=== PATIENT | male | born 1960 | race Caucasian/White ===

== ENCOUNTER → 2018-02-25 | Outpatient (CLI) | payer BC ==
[2018-02-25 09:00] LABS: ALT 40 U/L (21-72); AST 30 U/L (17-59); Albumin 4.5 g/dL (3.5-5.0); Alkaline Phosphatase 63 U/L (38-126); Anion Gap 13 mmol/L; Blood Urea Nitrogen 23 mg/dL (9-20); Calcium 9.6 mg/dL (8.4-10.2); Carbon Dioxide 25 mmol/L (22-30); Chloride 103 mmol/L (98-107); Cholesterol 158 mg/dL (<200); Glucose 94 mg/dL (74-99); HDL Cholesterol 53 mg/dL (40-60); LDL Cholesterol,Calculated 89 mg/dL (0-99); Potassium 4.8 mmol/L (3.5-5.1); Sodium 141 mmol/L (137-145); Total Bilirubin 1.1 mg/dL (0.2-1.3); Total Protein 6.9 g/dL (6.3-8.2); Triglycerides 82 mg/dL (<150)
== END | disposition home or self-care (01) ==
LOC: LABWHC1 08:07
PROVIDERS: ATTEND Internal Medicine Cardiovascular Disease
DX: I10 Essential (primary) hypertension (principal); I25.10 Atherosclerotic heart disease of native coronary artery without angina pectoris
CPT/HCPCS: 36415; 80053; 80061

== ENCOUNTER → 2019-08-03 | Outpatient (CLI) | payer BC ==
[2019-08-03 20:33] LABS: Chol/HDL Ratio 3.49; LDL Cholesterol,Calculated 112.8 mg/dL (0.0-131.0); VLDL Calculation 14.2 mg/dL (5.00-40.00)
== END | disposition home or self-care (01) ==
LOC: LABWHC1 08:41
PROVIDERS: ATTEND Internal Medicine Cardiovascular Disease
DX: I25.10 Atherosclerotic heart disease of native coronary artery without angina pectoris (principal); E78.5 Hyperlipidemia, unspecified
CPT/HCPCS: 36415; 80061; 84450; 84460

== ENCOUNTER 2019-08-20 15:01 | Emergency (ER) | payer BC ==
[2019-08-20] MEDS ORDERED: HYDROcodone/APAP 5-325MG 1 EACH TAB PO STA (15:32)
--- NOTE | 2019-08-20 16:16 | XR ---
EXAMINATION TYPE: XR calcaneus 2V RT DATE OF EXAM: 08/20/2019 COMPARISON: None HISTORY: Trauma, pain from fall TECHNIQUE: 2 view right calcaneus FINDINGS: No acute fractures or dislocations are evident. Very minimal plantar calcaneal heel spur is present. Boehler's angle is preserved. No acute fractures are evident. IMPRESSION: 1. Normal two-view calcaneus
--- NOTE | 2019-08-20 16:17 | XR ---
EXAMINATION TYPE: XR foot complete RT DATE OF EXAM: 08/20/2019 COMPARISON: None HISTORY: Fall, pain TECHNIQUE: Three-view right foot FINDINGS: No acute fractures are evident. Valgus deformity of the distal fifth digit is present. Some narrowing of the first metatarsophalangeal joint space is present. Mild narrowing of the proximal in terphalangeal joint spaces of the second through fifth digits are present. No acute fractures are dilip ntified. Very minimal plantar calcaneal heel spur is present. IMPRESSION: 1. No acute osseous abnormality. 2. Follow-up exams can be performed 7-10 days from acute trauma for continued pain.
--- NOTE | 2019-08-20 16:18 | XR ---
EXAMINATION TYPE: XR wrist complete LT DATE OF EXAM: 08/20/2019 COMPARISON: None HISTORY: Fall, pain TECHNIQUE: 4 view left wrist FINDINGS: There is a transverse fracture through the distal radius diaphysis. Small spur is along the radial aspect of the distal radius. No additional fractures are evident. Joint spaces are preserved. There is some degenerative joint changes at the first metacarpal metacarpal junction. IMPRESSION: 1. Transverse fracture distal metaphyseal radius. Some mild dorsal angulation may be present. 2. Soft tissue swelling over the fracture site.
--- NOTE | 2019-08-20 16:20 | XR ---
EXAMINATION TYPE: XR ribs LT w pa chest xray DATE OF EXAM: 08/20/2019 COMPARISON: Chest x-ray 09/21/2012 HISTORY: Fall, pain, trauma TECHNIQUE: Left ribs are examined in 2 projections. FINDINGS: No acute left rib fractures are evident. The soft tissues are normal. Minimal atelectasis m ay be at the cardiac apex. No pneumothorax is evident. IMPRESSION: 1. Mild atelectasis left base. 2. No displaced rib fractures identified. 3. Follow-up exams can be performed 7-10 days from acute trauma for continued pain.
--- NOTE | 2019-08-20 16:45 | ED ---
Fall HPI - General Chief Complaint: Fall Stated Complaint: Fall/arm injury Time Seen by Provider: 08/20/19 15:10 Source: patient Mode of arrival: ambulatory - History of Present Illness Initial Comments: Patient is a 59-year-old male with past history of stent placement presents emergency room and after he sustained a fall. He fell off of a ladder from a height of approximately 6 foot. States he landed on his left side. He landed on an outstretched arm as well as his left ribs. Reports to right heel pain as well. He landed on concrete. There was no blunt head trauma or loss of consciousness. The patient is on Plavix. There was no loss of consciousness. Patient is right-hand dominant. Complaining of pain with movement of the left wrist. Denies any numbness or tingling in his hands. No color changes. No neck or back pain. Patient has been ambulatory without difficulty. Denies any calf pain or swelling. No ankle pain or knee pain. No shoulder pain. He also reports to left-sided chest wall pain. No shortness of breath. No anterior chest pain. There are no alleviating, precipitating or modifying factors - Related Data Previous Rx's Medication Instructions Recorded Hydrocodone/Acetaminophen [[place] 1 tab PO Q6HR PRN #12 tab 08/20/19 5-325] Allergies Allergy/AdvReac Type Severity Reaction Status Date / Time No Known Allergies Allergy Verified 08/20/19 15:10 Review of Systems ROS Statement: Those systems with pertinent positive or pertinent negative responses have been documented in the HPI. ROS Other: All systems not noted in ROS Statement are negative. Past Medical History Past Medical History: Myocardial Infarction ([place]) History of Any Multi-Drug Resistant Organisms: None Reported Past Surgical History: Heart Catheterization With Stent Smoking Status: Never smoker Past Alcohol Use History: Occasional Past Drug Use History: None Reported General Exam Limitations: no limitations General appearance: alert, in no apparent distress Head exam: Present: atraumatic, normocephalic Eye exam: Present: PERRL, EOMI ENT exam: Present: normal exam Neck exam: Present: normal inspection. Absent: tenderness Respiratory exam: Present: normal lung sounds bilaterally, chest wall tenderness. Absent: respiratory distress, wheezes, rales, rhonchi, accessory muscle use Cardiovascular Exam: Present: normal rhythm, bradycardia GI/Abdominal exam: Present: soft. Absent: distended, tenderness, guarding, rebound, rigid Extremities exam: Present: tenderness (distal left wrist with obvious swelling. Decreased ROM due to pain. Patient is able to partially extend wrist and open/close hand. Intact sensation in the median, radial and ulnar distributions. No pain in the elbow or shoulder), other (right heel tenderness to palpation) Back exam: Present: normal inspection Neurological exam: Present: alert, oriented X3 Psychiatric exam: Present: normal affect, normal mood Skin exam: Present: warm, dry, intact Course Vital Signs 08/20/19 08/20/19 15:07 17:43 Temperature 97.6 F 98 F Pulse Rate 52 L 78 Respiratory 18 16 Rate Blood Pressure 121/64 138/70 O2 Sat by Pulse 100 98 Oximetry Procedures - FAST Exam Fluid in Morison's pouch: No Fluid in Splenorenal Junction: No Fluid around bladder, Transverse view: No Fluid around bladder, Sagittal view: No Limited Echocardiogram view: parasternal Fluid in Pericardial Sac: No Gross Wall Motion Abnormality: No Study normal for this patient: Yes Images saved for further review: Yes - Orthopedic Splinting/Casting Injury #1 Side: left Upper Extremity Immobilizer: sugar tong splint, synthetic pre-padded splint Medical Decision Making - Medical Decision Making The patient is placed in room 15. He is given a [place] for pain control. I did recommend x-rays of the patient's left ribs and chest. Also recommended a left wrist, right foot and right calcaneus x-ray. Imaging is reviewed. Left-sided rib x-ray demonstrated mild atelectasis at the left lung base. No displaced rib fractures. Left wrist x-ray demonstrates transverse fracture to the distal metaphyseal radius. Some mild dorsal angulation. Soft tissue swelling over the fracture site. Right foot and right calcaneus x-ray demonstrates no acute osseous have immobility. The patient was placed in a sugar tong splint. I also performed a FAST exam which was negative. He is to follow-up with the orthopedic associates. Take Motrin as needed for pain control. Return to the emergency department for any new or worsening symptoms Disposition Clinical Impression: Distal radius fracture, left, Fall, Left-sided chest wall pain, Right foot pain Disposition: HOME SELF-CARE Condition: Stable Instructions (If sedation given, give patient instructions): Wrist Fracture in Adults (ED) Additional Instructions: Please follow-up with the orthopedic doctor within 2-4 days. Return to the emergency room for any worsening symptoms Prescriptions: Hydrocodone/Acetaminophen [[place] 5-325] 1 tab PO Q6HR PRN #12 tab PRN Reason: Pain Is patient prescribed a controlled substance at d/c from ED?: Yes When asked, does pt state using other controlled substances?: No If prescribed controlled substance>3 days was MAPS reviewed?: Prescribed <3 Days If opioid is for acute pain is fill amount 7 days or less?: Yes If Rx opioid, was Start Talking consent form obtained?: Yes Referrals: Dayton Wheeler III, MD [Primary Care Provider] - 1-2 days Vinayak Arriaga DO [Doctor of Osteopathic Medicine] - 1-2 days Time of Disposition: 17:28
[2019-08-20] MEDS ORDERED: MORPHINE SULFATE 4 MG/ML SYRINGE IM STA (17:28)
[2019-08-20 17:44] VITALS: BP 138/70; PULSE 78; RESP 16; TEMP 98
== END 2019-08-20 17:43 | disposition home or self-care (01) ==
LOC: EC 15:01
DX: S52.592A Other fractures of lower end of left radius, initial encounter for closed fracture (principal); R07.89 Other chest pain; M79.671 Pain in right foot; J98.11 Atelectasis; R00.1 Bradycardia, unspecified; I25.2 Old myocardial infarction; Z79.02 Long term (current) use of antithrombotics/antiplatelets; Z95.5 Presence of coronary angioplasty implant and graft; W11.XXXA Fall on and from ladder, initial encounter
CPT/HCPCS: 99283; 29125; 96372; 71101; 73110; 73630; 73650; J2270

== ENCOUNTER → 2020-05-03 | Outpatient (CLI) | payer BC ==
[2020-05-03 17:05] LABS: Albumin 4.2 g/dL (3.80-4.90); Albumin/Globulin Ratio 2.33 (1.60-3.17); Bilirubin, Conjugated 0.2 mg/dL (0.20-0.40); Bilirubin,Unconjugated 0.4 mg/dL; Chol/HDL Ratio 2.85; Globulin 1.8 g/dL (1.6-3.3); Total Bilirubin 0.6 mg/dL (0.3-1.2)
== END | disposition home or self-care (01) ==
LOC: LABWHC1 07:42
PROVIDERS: ATTEND Internal Medicine Cardiovascular Disease
DX: E78.5 Hyperlipidemia, unspecified (principal); I25.10 Atherosclerotic heart disease of native coronary artery without angina pectoris
CPT/HCPCS: 36415; 80061; 80076

== ENCOUNTER → 2023-09-15 | Outpatient (CLI) | payer BC ==
[2023-09-15 15:30] LABS: ALT 43 U/L (10-49); AST 22 U/L (14-35); Chol/HDL Ratio 3.57 Ratio; LDL Cholesterol,Calculated 90.4 mg/dL (0.0-131.0)
== END | disposition home or self-care (01) ==
LOC: LABWHC1 09:06
PROVIDERS: ATTEND Internal Medicine Interventional Cardiology
DX: E78.00 Pure hypercholesterolemia, unspecified (principal)
CPT/HCPCS: 36415; 80061; 84450; 84460

== ENCOUNTER → 2024-05-19 | Outpatient (CLI) | payer BC | END | disposition home or self-care (01) | LOC: LABWHC1 08:19 | PROVIDERS: ATTEND Internal Medicine Interventional Cardiology | DX: E78.2 Mixed hyperlipidemia (principal) | CPT/HCPCS: 36415; 80061; 84450; 84460 ==

== ENCOUNTER 2025-01-30 09:27 | Day surgery (SDC) | payer BC ==
[~2025-01-30 09:27] MED LIST: LIDOCAINE 1% (10MG/ML) FOR IV START INTRADERMA PRN; ONDANSETRON 4 MG/2 ML VIAL IVP PRN
[2025-01-30] MEDS: IV FLUID CONTINUATION 1,000 ML IV ONE (10:00)
[2025-01-30 10:10] VITALS: RESP 16; TEMP 97.4
[2025-01-30] MEDS: LACTATED RINGERS 1,000 ML IV SCH (10:10)
[2025-01-30] MEDS ORDERED: PROPOFOL 10 MG/ML 20 ML VIAL IV ONE (10:44)
--- NOTE | 2025-01-30 10:48 | P.GSHP ---
History of Present Illness H&P Date: 01/30/25 Chief Complaint: Colon cancer screening 64-year-old male here for colonoscopy. Last colonoscopy 13 years ago. That was normal. No family history of colon cancer. No bowel complaints. 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, colonoscopy Past Anesthesia/Blood Transfusion Reactions: No Reported Reaction Date of Last Stent Placement:: 2004 Smoking Status: Former smoker - Past Family History Father History Unknown: Yes Medications and Allergies Home Medications Medication Instructions Recorded Confirmed Type Aspirin [Adult Low Dose Aspirin EC] 81 mg PO DAILY 01/23/25 01/30/25 History Atorvastatin [Lipitor] 80 mg PO HS 01/23/25 01/30/25 History Coq 10 100 mg PO DAILY 01/23/25 01/30/25 History Ezetimibe [Zetia] 10 mg PO DAILY 01/23/25 01/30/25 History Multivitamins, Thera [Multivitamin 1 tab PO DAILY 01/23/25 01/30/25 History (formulary)] amLODIPine BESYLATE 10 mg PO DAILY 01/23/25 01/30/25 History captopriL [Capoten] 100 mg PO BID 01/23/25 01/30/25 History carvediloL [Coreg] 12.5 mg PO BID 01/23/25 01/30/25 History Allergies Allergy/AdvReac Type Severity Reaction Status Date / Time No Known Allergies Allergy Verified 01/30/25 10:05 Surgical - Exam Vital Signs Temp Pulse Resp BP Pulse Ox 97.4 F L 53 L 16 142/76 96 01/30/25 10:08 01/30/25 10:08 01/30/25 10:08 01/30/25 10:08 01/30/25 10:08 Physical exam: General: Well-developed, well-nourished HEENT: Normocephalic, sclerae nonicteric Abdomen: Nontender, nondistended Extremities: No edema Neuro: Alert and oriented Assessment and Plan (1) Colon cancer screening Narrative/Plan: Will proceed with colonoscopy at this time. Current Visit: Yes Status: Acute Code(s): Z12.11 - ENCOUNTER FOR SCREENING FOR MALIGNANT NEOPLASM OF COLON SNOMED Code(s): 079933061
--- NOTE | 2025-01-30 10:59 | P.PCN ---
Date of Procedure: 01/30/25 Procedure(s) Performed: PREOPERATIVE DIAGNOSIS: Colon cancer screening POSTOPERATIVE DIAGNOSIS: Small rectal polyp, diverticulosis PROCEDURE: Colonoscopy with snare polypectomy ANESTHESIA: MAC SURGEON: Regan York M.D. SPECIMENS: Polyp ENDOSCOPIC PROCEDURE: The patient was placed on the endoscopy table in the left decubitus position. The Olympus colonoscope was inserted into the anus and passed under direct visualization to the base of the cecum. The appendiceal orifice was visualized. From that point the scope was slowly withdrawn inspecting all surfaces carefully. There were no neoplastic inflammatory or polypoid lesions throughout the cecum, ascending, transverse, descending, and sigmoid colon. In the rectum there was a small polyp that was removed using the snare with cautery technique. There was minimal diverticular change in the left side of the colon. Digital rectal examination was normal. The patient was taken to the recovery room in stable condition per anesthesia guidelines. RECOMMENDATIONS: Await biopsy results. Repeat colonoscopy pending pathology results.
[2025-01-30 11:31] VITALS: BP 122/71; PULSE 55
== END 2025-01-30 11:46 | disposition home or self-care (01) ==
LOC: ORWHC2ENDO 09:27
PROVIDERS: ATTEND Surgery
DX: Z12.11 Encounter for screening for malignant neoplasm of colon (principal); D12.8 Benign neoplasm of rectum; K57.30 Diverticulosis of large intestine without perforation or abscess without bleeding; I10 Essential (primary) hypertension; E78.5 Hyperlipidemia, unspecified; I25.10 Atherosclerotic heart disease of native coronary artery without angina pectoris; I25.2 Old myocardial infarction; Z95.5 Presence of coronary angioplasty implant and graft; Z79.82 Long term (current) use of aspirin; Z79.899 Other long term (current) drug therapy; Z87.891 Personal history of nicotine dependence
CPT/HCPCS: 45385; 88305; J2704